=== PATIENT | female | born 1975 | race Caucasian/White ===

== ENCOUNTER → 2022-12-11 | Day surgery (SDC) | payer OTHER ==
[2022-11-14 12:28] VITALS: BMI 34.3
[~2022-12-11] MED LIST: DEXAMETHASONE SOD PHOSPHATE 4 MG/1 ML VIAL ONE; KETAMINE HCL 500 MG/10 ML VIAL ONE; KETOROLAC TROMETHAMINE 30 MG/1 ML VIAL ONE; LIDOCAINE HCL/PF 2% SDV 5ML VIAL ONE; MIDAZOLAM HCL 2 MG/2 ML SINGLE DOSE VIAL ONE; ONDANSETRON 4 MG/2 ML VIAL ONE; PROPOFOL 20 ML ONE; PROPOFOL 40 ML ONE
== END | disposition home or self-care (01) ==
LOC: JASU-SURG 13:12
PROVIDERS: ATTEND Surgery
PROC: BH00ZZZ Plain Radiography of Right Breast (ICD-10-PCS; principal; 2022-12-11)
DX: D05.01 Lobular carcinoma in situ of right breast (principal)
CPT/HCPCS: 19281; A4648; C9803-CS; U0003; U0005

== ENCOUNTER 2022-12-14 03:53 | Day surgery (SDC) | payer OTHER ==
[2022-12-12 10:44] VITALS: BMI 34.3
[2022-12-14 09:40] LABS: BASO % 0.5 % (0-2.0); EOS % 1.9 % (0-4.5); HEMOGLOBIN 10.5 GM/dL (10.7-15.3); LYMPH % 30.6 % (8-40); MCH 24.4 pg (25.7-33.7); MCHC 31.7 g/dl (32.0-36.0); MONO % 12.4 % (3.8-10.2); NEUT % 54.6 % (42.8-82.8); PLATELET COUNT 291 10^3/uL (134-434); RBC 4.29 M/mm3 (3.60-5.2); RDW 17.1 % (11.6-15.6); WHITE BLOOD COUNT 4.9 K/mm3 (4.0-10.0)
[2022-12-14 10:07] LABS: ALBUMIN 3.2 g/dl (3.4-5.0); BLOOD UREA NITROGEN 12.3 mg/dL (7-18); CALCIUM 8.3 mg/dL (8.5-10.1)
[2022-12-14 10:10] LABS: CREATININE 0.8 mg/dL (0.55-1.3)
[2022-12-14 10:12] LABS: BILIRUBIN,TOTAL 0.2 mg/dL (0.2-1); TOT PROT 7.1 g/dl (6.4-8.2)
[2022-12-14 10:12] LABS: EPI CELLS 14 /uL (0-25.1); HYALINE CASTS 1 /uL (0-3.1); PH,URINE 6.5 (5.0-8.0); URINE APPEARANCE CLEAR; URINE BACTERIA 460 /uL (0-1359); URINE BILIRUBIN NEGATIVE (NEGATIVE); URINE COLOR YELLOW; URINE GLUCOSE (UA) NEGATIVE (NEGATIVE); URINE KETONE NEGATIVE (NEGATIVE); URINE LEUK ESTERASE NEGATIVE (NEGATIVE); URINE NITRITE NEGATIVE (NEGATIVE); URINE PROTEIN NEGATIVE (NEGATIVE); URINE RBC 15 /uL (0-23.9); URINE UROBILINOGEN 0.2 mg/dL (0.2-1.0); URINE WBC 15 /uL (0-25.8)
[2022-12-14 10:21] LABS: INR 1.06 (0.83-1.09); PROTHROMBIN TIME (PATIENT) 12.3 SEC (9.7-13.0)
[2022-12-14] MEDS ORDERED: ceFAZolin SODIUM 1 GM VIAL IVPB ONE (12:02)
[2022-12-14] MEDS ORDERED: LIDOCAINE HCL 1%, 10 MG/ML (20ML VIAL) INF ONE ×2 (12:09)
[2022-12-14] MEDS ORDERED: oxyCODONE HCL 5 MG TABLET PO PRN ×2 (13:12)
[2022-12-14] MEDS ORDERED: ONDANSETRON 4 MG/2 ML VIAL IVPUSH PRN (13:12)
[2022-12-14] MEDS ORDERED: ACETAMINOPHEN 1000 MG/100 ML BAG IVPB ONE (13:13)
[2022-12-14] MEDS ORDERED: LACTATED RINGERS SOLUTION 1,000 ML IV SCH (13:15)
[2022-12-14 14:19] VITALS: RESP 18
[2022-12-14 16:09] VITALS: BP 130/75; PULSE 65; TEMP 98.2
== END 2022-12-14 15:40 | disposition home or self-care (01) ==
LOC: JASU-SURG 03:53
PROVIDERS: ATTEND Surgery
PROC: 0HBT0ZX Excision of Right Breast, Open Approach, Diagnostic (ICD-10-PCS; principal; 2022-12-14 11:30)
DX: D05.81 Other specified type of carcinoma in situ of right breast (principal)
CPT/HCPCS: 36415; 76098-TC-FY; 80053; 81003; 81025; 85025; 85610; 88307-TC; 88341-TC; 88342-TC; 94760